=== PATIENT | male | born 1980 | race Caucasian/White ===

== ENCOUNTER → 2019-07-25 | Outpatient (CLI) | payer BC ==
[~2019-07-25] MED LIST: METHACHOLINE KIT (J7674) INH ONE
--- NOTE | 2019-07-25 08:00 | PFTRPT ---
Height: 68.00 Inches Weight: 193.00 Lbs BSA: 2.01 Diagnosis: R06.00 DATE OF STUDY: 07/25/2019 ORDERED BY: Kane Kelly PA-C INTERPRETATION: Study of excellent technical quality. Under protocol, methacholine was administered. At a dose of 2.5 mg or 13.875 CDUs, a 31% decline in the FEV1 was noted. PC of 0.93 is significant. Flow rates did return to baseline post bronchodilator administration. IMPRESSION: Positive methacholine challenge study. MTDD
== END ==
LOC: M CARPUL 06:51
PROVIDERS: ATTEND Physician Assistant
DX: R06.00 Dyspnea, unspecified (principal)
CPT/HCPCS: 94070; J7674

== ENCOUNTER → 2021-02-10 | Outpatient (CLI) | payer BC ==
--- NOTE | 2021-02-10 16:55 | REP ---
INDICATION: ABN PFTS COMPARISON: None. TECHNIQUE: Standard helical technique without intravenous contrast administration. FINDINGS: The mediastinum and pulmonary aidee are within normal limits. There is no evidence of a mass or adenopathy. There are no pleural or pericardial effusions. The imaged upper abdomen and imaged osseous structures are within normal limits. Evaluation of the lung baez shows left lower lobe curvilinear densities without evidence of a definite abnormal nodule or mass. There is evidence of early cylindrical bronchiectasis. IMPRESSION: The opacities seen in the left lower lobe likely represent subsegmental atelectatic changes, however, since are no priors comparison consider short-term follow-up. There is no revised Fleischner society criteria on the recommendation for follow-up of such a finding. There is mild cylindrical bronchiectasis. <Electronically signed by Anthony Bell > 02/10/21 [id number]
== END ==
LOC: M RAD 13:59
PROVIDERS: ATTEND Internal Medicine Pulmonary Disease
DX: R94.2 Abnormal results of pulmonary function studies (principal); J47.9 Bronchiectasis, uncomplicated

== ENCOUNTER → 2022-03-02 | Outpatient (CLI) | payer BC | LOC: M RAD 15:07 | PROVIDERS: ATTEND Internal Medicine Pulmonary Disease | DX: R91.8 Other nonspecific abnormal finding of lung field (principal); K44.9 Diaphragmatic hernia without obstruction or gangrene; K21.9 Gastro-esophageal reflux disease without esophagitis ==